=== PATIENT | male | born 1950 | race African-American/Black ===

== ENCOUNTER 2017-10-13 17:59 | Emergency (ER) | payer MEDICARE, BC ==
[2017-10-13 20:15] LABS: ADD MAN DIFF? NO
[2017-10-13 20:17] LABS: BASO # 0.1 x10^3/uL (0.0-0.2); BASO % 1 % (0-3); EOS # 0.1 x10^3/uL (0.0-0.7); EOS % 2 % (0-3); HEMATOCRIT 39.7 % (39.0-53.0); HEMOGLOBIN 13.7 g/dL (13.0-17.5); LYMPH # 1.5 x10^3/uL (1.0-4.8); LYMPH % 23 % (24-48); MEAN CORPUSCULAR HEMOGLOBIN 28 pg (25-35); MEAN CORPUSCULAR HGB CONC 35 g/dL (31-37); MEAN CORPUSCULAR VOLUME 80 fL (79-100); MONO # 0.9 x10^3/uL (0.0-1.1); MONO % 14 % (0-9); NEUT % 61 % (31-73); PLATELET COUNT 151 x10^3/uL (140-400); RED BLOOD COUNT 4.96 x10^6/uL (4.30-5.70); RED CELL DISTRIBUTION WIDTH 14.5 % (11.5-14.5); WHITE BLOOD COUNT 6.7 x10^3/uL (4.0-11.0)
[2017-10-13] MEDS: IV NORMAL SALINE 1000ML BAG 1,000 ML IV ×2 (20:19)
[2017-10-13] MEDS: ONDANSETRON PF 4 MG/2 ML VIAL. IV ×2 (20:20)
[2017-10-13] MEDS: fentaNYL PF VIAL 100 MCG/2 ML VIAL IV ×4 (20:21→22:00)
[2017-10-13 20:30] LABS: ANION GAP 10 (6-14); BLOOD UREA NITROGEN 14 mg/dL (8-26); BUN/CREATININE RATIO 12 (6-20); CALCIUM 8.6 mg/dL (8.5-10.1); CARBON DIOXIDE 26 mmol/L (21-32); CHLORIDE 104 mmol/L (98-107); CREATININE 1.2 mg/dL (0.7-1.3); GFR 73.5; GLUCOSE 177 mg/dL (70-99); SODIUM 140 mmol/L (136-145)
[2017-10-13 20:35] LABS: ALBUMIN 3.6 g/dL (3.4-5.0); ALBUMIN/GLOBULIN RATIO 1.1 (1.0-1.7); ALK PHOS 67 U/L (46-116); ALT (SGPT) 35 U/L (16-63); AST (SGOT) 25 U/L (15-37); TOTAL BILIRUBIN 0.4 mg/dL (0.2-1.0); TOTAL PROTEIN 6.8 g/dL (6.4-8.2)
[2017-10-13 20:58] LABS: BILIRUBIN,URINE NEGATIVE (NEG); CLARITY,URINE CLEAR; COLOR,URINE YELLOW; GLUCOSE,URINE NEGATIVE (NEG); NITRITE,URINE NEGATIVE (NEG); PH,URINE 5.5; PROTEIN,URINE NEGATIVE (NEG-TRACE); UROBILINOGEN,URINE 0.2 mg/dL (0.2 mg/dL)
[2017-10-13 21:06] LABS: BACTERIA,URINE 0 /HPF (0-FEW); RBC,URINE 0 /HPF (0-2); SQUAMOUS EPITHELIAL CELL,UR FEW /LPF; WBC,URINE RARE /HPF (0-4)
[2017-10-13] MEDS ORDERED: fentaNYL PF VIAL 100 MCG/2 ML VIAL IV ×2 (22:00)
[2017-10-13] MEDS: CYCLOBENZAPRINE 10 MG TABLET. PO ×2 (22:00)
[2017-10-13] MEDS ORDERED: CYCLOBENZAPRINE 10 MG TABLET. PO ×2 (22:00)
== END 2017-10-13 23:06 | disposition home or self-care (01) ==
LOC: ER 17:59
DX: R10.9 Unspecified abdominal pain (principal); M54.5 Low back pain; I48.91 Unspecified atrial fibrillation; E11.9 Type 2 diabetes mellitus without complications; E03.9 Hypothyroidism, unspecified; E78.00 Pure hypercholesterolemia, unspecified; I10 Essential (primary) hypertension; M10.9 Gout, unspecified; Z79.02 Long term (current) use of antithrombotics/antiplatelets
CPT/HCPCS: 36415; 74176; 80053; 81001; 85025; 85610; 96361; 96374; 96375; 96376; 99285-25; J2405; J3010; J7030

== ENCOUNTER → 2019-04-27 | Outpatient (CLI) | payer MEDICARE, BC ==
[2017-10-13 22:30] VITALS: BP 101/64
[~2019-04-27] MED LIST: ASPI-482 PO; CHOL200027 PO; CYCL10TA2 PO; GLIM1TAB2 PO; HYDR-3164 PO; IBUP-1060 PO; LEVO150T5 PO; MELOXICAN; METF10007 PO; MULT1TAB52 PO; SIMV40TA3 PO; TADA20TA PO
--- NOTE | 2019-04-27 16:04 | KCIC ---
AP and Lateral Views of the Chest 04/27/2019 12:00 AM Indication: Preoperative Comparison: 2 view chest radiograph October 15, 2016 Findings: There is no focal consolidation or infiltrate identified. The cardiomediastinal silhouette is within normal limits. There is no evidence of pneumothorax or pleural effusion. No acute osseous abnormalities are identified. Impression: No evidence of acute cardiopulmonary process. Electronically signed by: Romario Daniels MD (04/27/2019 4:01 PM) [id number]
== END | disposition home or self-care (01) ==
LOC: KCIC 15:33
PROVIDERS: ATTEND Family Medicine
DX: Z01.818 Encounter for other preprocedural examination (principal); R06.02 Shortness of breath
CPT/HCPCS: 71046

== ENCOUNTER → 2020-06-05 | Outpatient (CLI) | payer MEDICARE, BC ==
[2017-10-13 22:30] VITALS: BP 101/64
[~2020-06-05] MED LIST changes: -GLIM1TAB2 PO; +GLIM1TAB7 PO; +MULT-445 PO; -MULT1TAB52 PO; +SIMV40TA18 PO; -SIMV40TA3 PO
--- NOTE | 2020-06-06 09:35 | SLEEP ---
DATE OF STUDY: 06/05/2020 SLEEP STUDY REFERRING PHYSICIAN: Roberto Linton MD PRIMARY CARE PHYSICIAN: Sam Cornell MD The patient is 69 years old who weighs 370 pounds with a BMI of 50. The patient's [place] score was 5. The patient has a history of sleep apnea, diagnosed 5 years ago. He has been on CPAP at home at 13 cm water. He was also clinically suspected for REM behavior disorder. As a result, a repeat titration study with video monitoring was recommended. This was done at [facility]. During the night study, the patient spent 429 minutes in bed and slept for 333 minutes with a sleep efficiency of 78%. Sleep latency was 7 minutes with a REM latency of 56 minutes. Sleep architecture showed normal stage 1 sleep, increased stage 2 sleep, normal slow wave sleep and normal REM sleep. EKG monitoring revealed normal sinus rhythm. Occasional PVCs seen. Average heart rate 49 beats per minute. No sustained arrhythmias observed. No PLMs observed. The patient was started on CPAP at home pressure of 13 cm water, but titrated up to 17 cm water. Although the patient's AHI remained less than 5 on 15 cm water. At the final pressure of 17 cm of water, the patient slept for 45 minutes. The patient had supine sleep throughout and a short REM period was observed. The patient's AHI was 0 per hour and oxygen saturation remained above 92%. Video monitoring did not reveal any evidence of REM behavior disorder. IMPRESSION: 1. Sleep apnea, diagnosed previously. 2. No clinically significant periodic limb movements. 3. No video evidence of REM behavior disorder. RECOMMENDATIONS: 1. CPAP at 17 cm water effectively treated the patient's sleep apnea and should be used on a nightly basis. 2. Follow up in 4-6 weeks to assess compliance and to document clinical improvement with CPAP. 3. Weight loss is strongly advised. 4. Avoid [employer] depressants. 5. Cautioned regarding driving until symptoms of sleep apnea resolve with CPAP. 6. The patient should be followed up clinically for any persistent symptoms of REM behavior disorder. ROBERTO LINTON MD DR: RADHA/addi JOB#: [id number] / [id number] SAM Means MD
== END | disposition home or self-care (01) ==
LOC: SLPLAB 19:00
PROVIDERS: ATTEND Internal Medicine Critical Care Medicine
DX: G47.30 Sleep apnea, unspecified (principal)
CPT/HCPCS: 95811